=== PATIENT | female | born 1975 | race Caucasian/White ===

== ENCOUNTER → 2018-02-06 01:15 | Outpatient (CLI) | payer OTHER, SELFPAY ==
--- NOTE | 2018-02-06 11:52 | DI.REPORT_ITS ---
SYMPTOM/DIAGNOSIS: SCREENING, Z12.31 MAMMOGRAM: Mammograms were interpreted according to the usual protocol including computer analysis with CAD system, tomosynthesis and C view imaging. The breast tissue is heterogeneously radiodense which lowers the sensitivity of the study. Breast density category C. There is an apparent rounded subareolar density which likely represents a cyst, however, a small mass could not be excluded. There are no suspicious calcifications. SUMMARY: Question small left breast cyst or mass. Further assessment with left breast ultrasound is recommended. Category 0 - C. MQSA ASSESSMENT OF FINDINGS: Incomplete: Needs additional imaging evaluation. Category 0. Patient will receive a letter notifying them of these results. Bi-RADS category C. The breasts are heterogeneously dense, which may obscure small masses. The patient returned on 02/12/18 for a left breast ultrasound. Final Category 1 , breast density D. FINAL MQSA ASSESSMENT OF FINDINGS: Negative. Category 1. Patient will receive a letter notifying them of these results. BI-RADS category D. The breasts are extremely dense, which lowers the sensitivity of mammography.
== END ==
PROVIDERS: PCP Family Medicine; Visit Provider Nurse Practitioner Family
DX: Z12.31 Encounter for screening mammogram for malignant neoplasm of breast (principal); R92.8 Other abnormal and inconclusive findings on diagnostic imaging of breast
CPT/HCPCS: 77063; 77067

== ENCOUNTER → 2018-02-12 01:12 | Outpatient (CLI) | payer OTHER, SELFPAY ==
--- NOTE | 2018-02-12 13:55 | DI.REPORT_ITS ---
SYMPTOMS/DIAGNOSIS: F/U MAMMO, ? SMALL LT BREAST CYST OR MASS LEFT BREAST ULTRASOUND: The entire left breast was scanned. The mammogram questioned a subareolar nodule. No cyst or mass is identified. There is dense breast tissue. IMPRESSION: Category I D, negative mammogram and left breast ultrasound. Yearly screening mammography is recommended.
[2018-02-12 15:22] LABS: TSH (W/Ref FT4) 0.99 uIU/mL (0.358-3.74)
== END ==
PROVIDERS: PCP Family Medicine; Visit Provider Nurse Practitioner Family
DX: N92.6 Irregular menstruation, unspecified (principal); Z12.31 Encounter for screening mammogram for malignant neoplasm of breast; R92.8 Other abnormal and inconclusive findings on diagnostic imaging of breast
CPT/HCPCS: 36415; 76642; 84443

== ENCOUNTER → 2018-02-19 01:00 | Outpatient (CLI) | payer OTHER, SELFPAY ==
--- NOTE | 2018-02-19 07:48 | DI.REPORT_ITS ---
SYMPTOM/DIAGNOSIS: WORSENING DYSMENORRHEA AND MID CYCLE PAIN R10.2 PELVIC ULTRASOUND: Transabdominal and transvaginal exams were performed. The uterus measures 7.3 x 3.7 5 cm. There is a 1.5 cm posterior fibroid. The endometrial stripe measures 4 mm in thickness. There is a trace amount of fluid in the cul de sac. The ovaries are normal in size and appearance. A corpus luteum cyst is noted on the right ovary. The kidneys are unremarkable. IMPRESSION: Small posterior fibroid.
== END ==
PROVIDERS: PCP Family Medicine; Visit Provider Nurse Practitioner Family
DX: R10.2 Pelvic and perineal pain (principal); N94.6 Dysmenorrhea, unspecified; D25.9 Leiomyoma of uterus, unspecified
CPT/HCPCS: 76830; 76856

== ENCOUNTER 2018-10-01 09:52 | Outpatient (CLI) | payer OTHER, SELFPAY ==
--- NOTE | 2018-10-01 11:28 | DI.US_ITS ---
SYMPTOMS/DIAGNOSIS: FAMILY H/O THYROID DISEASE, Z83.49 THYROID ULTRASOUND: The right thyroid lobe measures 6.3 x 1.6 x 1.9 cm. The isthmus measures 3.7 mm. The left thyroid lobe measures 4.9 x 1.6 x 1.6 cm. The gland is acoustically homogeneous. No cyst or mass is apparent. SUMMARY: The right thyroid lobe is somewhat larger than the left with a maximal diameter of 6.3 cm, left lobe 4.9 cm. There are no cysts or masses seen and the study is otherwise unremarkable.
== END 2018-10-01 10:12 ==
PROVIDERS: PCP Family Medicine; Visit Provider Otolaryngology Otolaryngology/Facial Plastic Surgery
DX: E07.89 Other specified disorders of thyroid (principal); Z83.49 Family history of other endocrine, nutritional and metabolic diseases
CPT/HCPCS: 76536

== ENCOUNTER 2019-04-18 01:44 | Outpatient (CLI) | payer OTHER, SELFPAY ==
--- NOTE | 2019-04-18 09:33 | DI.RAD_ITS ---
EXAM: XR HIP RT COMPLETE AP PELVIS INDICATION: TROCHANTERIC BURSITIS RT M70.61. COMPARISON: No exams were available for comparison TECHNIQUE: 2D digital imaging was performed. FINDINGS: Hip joint spaces are well maintained. Time there is minimal acetabular spurring. No joint space or soft tissue calcifications are seen. The SI joints are unremarkable. IMPRESSION: Minimal degenerative changes.
== END 2019-04-18 02:04 ==
PROVIDERS: PCP Family Medicine; Visit Provider Family Medicine
DX: M25.551 Pain in right hip (principal); M70.61 Trochanteric bursitis, right hip; M16.11 Unilateral primary osteoarthritis, right hip
CPT/HCPCS: 73502

== ENCOUNTER 2019-09-04 01:46 | Outpatient (CLI) | payer OTHER, SELFPAY ==
--- NOTE | 2019-09-04 11:40 | DI.MRI_ITS ---
EXAM: MR LOWER JOINT RT WO CLINICAL HISTORY: Right hip abductor tendon tear, trochanteric bursitis M76.891 ENTHESOPATHIES OF RT LOWER LIMB, M70.61 TECHNIQUE: Multiplanar multisequence MRI was performed. COMPARISON: No exams were available for comparison FINDINGS: There is hyperintense signal adjacent to the greater trochanter of the right femur. There also appea rs to be hyperintense signal surrounding the gluteus medius tendon and within the adjacent muscle. T he findings are suspicious for gluteus medius muscle strain/tear. There is normal marrow signal. No evidence of an occult fracture or avascular necrosis. No other abnormal signal is seen in the muscles or tendons. The right hip joint appears well maintained. The articular cartilage and labrum are grossly unremark able on this noncontrast examination. No soft tissue mass or focal fluid collection is appreciated. IMPRESSION: Findings of greater trochanteric bursitis. Findings suggestive of a strain or partial tear of the gl uteus medius tendon. DATA REPOSITORY:
== END 2019-09-04 02:06 ==
PROVIDERS: PCP Family Medicine; Visit Provider Student in an Organized Health Care Education/Training Program
DX: M25.551 Pain in right hip (principal); M70.61 Trochanteric bursitis, right hip; S76.091A Other specified injury of muscle, fascia and tendon of right hip, initial encounter
CPT/HCPCS: 73721

== ENCOUNTER 2019-11-17 09:36 | Outpatient (CLI) | payer OTHER, SELFPAY ==
[2019-11-18 17:37] LABS: COVID-19 RT-PCR Result NEGATIVE (Negative)
== END 2019-11-17 09:56 ==
PROVIDERS: PCP Family Medicine; Visit Provider Student in an Organized Health Care Education/Training Program
DX: Z11.59 Encounter for screening for other viral diseases (principal); Z01.818 Encounter for other preprocedural examination
CPT/HCPCS: U0003

== ENCOUNTER 2019-11-20 08:53 | Day surgery (SDC) | payer OTHER, SELFPAY ==
[2019-11-20] VITALS (9 sets, daily range): BP systolic 82–101; BP diastolic 49–68; PULSE 60–100; RESP 12–18; TEMP 36.5–37; O2SAT 96–100
[2019-11-20] MEDS: Lactated Ringers 1,000 ML 100 ML IV ×2 (09:32→13:33)
[2019-11-20] MEDS: ceFAZolin 2 GM/50 ML BAG IVPB (11:45)
[2019-11-20] MEDS: Bupivacaine 0.25% Pres-Free 30 ML VIAL (12:34)
--- NOTE | 2019-11-20 14:57 | W.PM.DSUDISC ---
Discharge Plan Disposition Patient Disposition: HOME Condition: Stable Discharge Details Reason For Visit: TROCH BURSITIS,ITB SYNDROME Attending Provider: Rene Keita Primary Care Provider: Dia Hagen Home Meds and New Rx's Prescriptions: New naproxen 250 mg tablet 250 - 500 mg PO BID PRN (Reason: Moderate pain or swelling) Qty: 60 RF: 0 tramadol 50 mg Tablet 50 mg PO Q8H PRN PRN (Reason: severe pain) Qty: 12 RF: 0 aspirin 325 mg tablet,delayed release (DR/EC) 325 mg PO DAILY 30 Days Qty: 30 RF: 0 ondansetron 4 mg tablet,disintegrating 4 mg PO Q6H PRN (Reason: nausea or vomiting) Qty: 5 RF: 0 Continued norethindrone (contraceptive) 0.35 mg tablet 0.35 mg PO DAILY Qty: 84 RF: 5 loratadine [Claritin] 10 mg tablet 10 mg PO DAILY RF: 0 citalopram 10 MG tablet 20 mg PO DAILY RF: 0 clonazepam 0.25 MG tablet,disintegrating 0.25 mg PO PRN RF: 0 omeprazole 20 mg capsule,delayed release(DR/EC) 40 mg PO PRN RF: 0 Discharge Instructions Additional Instructions: Surgery: Right hip excision trochanteric bursa and iliotibial band lengthening Activity: Protected weightbearing with walker for 6 weeks. No active hip abduction or passive abduction for 6 weeks. Gradually increase range of motion and work to normalize gait over this time period. A physical therapy prescription will be provided separately in the office at follow-up if needed. Prescriptions: Aspirin 325 mg take 1 daily to prevent a blood clot for 30 days Naproxen 250 mg take 1-2 every 12 hours with a meal as needed for moderate pain Tramadol 50 mg take 1 every 8 hours as needed for severe pain Ondansetron (Zofran) 4 mg orally dissolving tablet as needed for nausea or vomiting You may use onbo-bra-joskjrp Tylenol (acetaminophen) as needed for mild pain. These pain medications may be taken all at once or in different combinations as needed. Also, recommend Colace (docusate) as a stool softener as surgery and pain medicine cause constipation. Dressings: Leave dressing in place until follow-up. Keep clean and dry at all times. Follow-up: 10-[address] Keita Please call the office during business hours with any questions or concerns. Let us know right away if you develop any redness, drainage, fevers, chest pain, or trouble breathing. Do not drink alcohol or drive for at least 24 hours after anesthesia. Stand Alone Forms: [facility] Post op Instructions, Hermes [facility] ([facility]) Referrals: Rene Keita MD [ [facility] STAFF PHYSICIAN] - Discharge Orders Discharge Orders: Discharge Order (Routine); Ordered 11/20/19 Ordered By: Rene Keita DS: Diagnosis Discharge Diagnosis (1) Trochanteric bursitis, right hip: Status: Chronic (2) Tendinitis involving right hip abductors: Status: Acute (3) Iliotibial band syndrome of right side: Status: Acute
[2019-11-20] MEDS: HYDROcodone 5/Acetaminophen 325 TAB PO (15:14)
--- NOTE | 2019-11-20 15:17 | ROE_ITS ---
Date of service: 11/20/19 Time of Service: 14:57 Operative Note Operative Note DATE OF PROCEDURE: 11/20/19 PRE-OP DIAGNOSIS: Right: 1. Hip trochanteric bursitis 2. Iliotibial band syndrome 3. Hip abductor tendinitis POST-OP DIAGNOSIS: same PROCEDURE: Right: 1. Excision trochanteric bursa, CPT #53671 2. Iliotibial band tenotomy with z-lengthening, CPT #47935 SURGEON: Rene Keita DECKH[employer] CLAM DREDGE: Zohra Narayanan ANESTHESIA: GETA and local ESTIMATED BLOOD LOSS: 15 COMPLICATIONS: None Patient was transported to: PACU Patient's condition: stable Implants: None Indications: Please see complete medical record for details. Findings: Significantly tight and thickened IT band over the greater trochanter. Chronic trochanteric bursitis. Intact hip abductor tendons. Procedure Description: The patient was taken to the operating room and transferred to the operating room table. General anesthesia was induced. The patient was positioned laterally. All bony prominences were well-padded. Preoperative antibiotics were administered. The right hip was prepped and draped in the usual sterile fashion. The correct patient, procedure, and side of the procedure were all verified prior to incision. Superficial and deep tissue about the surgical site was infiltrated prior to incision with 40 cc of 0.25% bupivacaine and Exparel mixture. A longitudinal incision was made centered over the greater trochanter. Sharp dissection was carried through subcutaneous tissue and adipose down to the IT band. There were significant and extensive adhesions of subcutaneous tissue over the IT band, which were released through a combination of blunt digital dissection and with a Ramon. Hemostasis was achieved with bipolar cautery. The margins of the IT band about the greater trochanter were exposed. A marking pen was used to plan the incision for exposure of the trochanteric bursa as well as for the Z lengthening with acute angles at the proximal anterior and posterior distal aspects. A deep knife was used to longitudinally incise the IT band, which was extremely taut and immediately retracted both anteriorly and posteriorly away from the greater trochanter exposing the underlying bursa. The underlying bursa was chronically inflamed and scarred with adhesions creating an irregular surface over the greater trochanter bone. The sciatic nerve was palpated far deep and posteriorly in the wound and avoided. The bursa was completely removed using careful exposure and rongeur. Rongeur was also used to smooth prominences over the greater trochanter. Once this was complete, exposure allowed us to inspect the abductor tendons insertion onto the greater trochanter which was digitally palpated and felt to be strong and intact. Normal saline was used to irrigate the wound. The corners of the planned IT band tenotomy were tagged using tied 0 Vicryl. The deep knife was used with careful exposure most most proximally and distally to create the anterior and posterior leaflets. The IT band tension mostly released itself and then was completed bluntly and digitally. The tag stitches were used to repair the correct margins of the IT band in a lengthened fashion. #1 Vicryl was used in a cecogg-vn-mylqx interrupted fashion to repair the IT band taking care to ensure there was no undue tension over the greater trochanter after repair. Wound was copiously irrigated normal saline. Appropriate hemostasis had been achieved. 0 Vicryl in a buried interrupted fashion was used to approximate the space. 2-0 Monocryl was used in a buried interrupted fashion to close subcutaneous layer. The skin was closed using 3-0 Monocryl in a running subcuticular fashion. Skin glue was applied over the incision and allowed to completely dry. The incision was covered with a silver impregnated bandage. The patient awoke from anesthesia without complication was transferred to cover him in stable condition.
== END 2019-11-20 15:52 | disposition home or self-care (01) ==
PROVIDERS: PCP Family Medicine; Visit Provider Student in an Organized Health Care Education/Training Program
PROC: (CPT 27062; principal; 2019-11-20 10:45)
DX: M70.61 Trochanteric bursitis, right hip (principal); M76.31 Iliotibial band syndrome, right leg; M76.891 Other specified enthesopathies of right lower limb, excluding foot; F17.210 Nicotine dependence, cigarettes, uncomplicated; Z79.3 Long term (current) use of hormonal contraceptives
CPT/HCPCS: 27062; 27305; J0690; J1100; J1885; J2001; J2405

== ENCOUNTER 2020-05-12 10:05 | Outpatient (CLI) | payer OTHER, SELFPAY ==
--- NOTE | 2020-05-12 08:15 | DI.RAD_ITS ---
EXAM: XR HIP RT COMPLETE AP PELVIS CLINICAL HISTORY: Hip pain. TECHNIQUE: 2D digital imaging was performed. COMPARISON: CR XR HIP RT COMPLETE AP PELVIS from 04/18/2019 FINDINGS: BONES: No acute fracture is present. No bony destructive lesion is seen. JOINTS: No dislocation present. Stable minimal degenerative changes are seen in the hips. Sacroiliac joints and symphysis pubis are unremarkable. SOFT TISSUE: Normal. IMPRESSION: Stable mild degenerative changes of the hips. Unremarkable radiographs of the pelvis. DATA REPOSITORY: RADIATION DOSE DELIVERED:
== END 2020-05-12 10:25 ==
PROVIDERS: PCP Family Medicine; Referring Provider Family Medicine; Visit Provider Student in an Organized Health Care Education/Training Program
DX: M16.0 Bilateral primary osteoarthritis of hip (principal)
CPT/HCPCS: 73502

== ENCOUNTER 2020-06-17 00:29 | Outpatient (CLI) | payer OTHER, SELFPAY ==
--- NOTE | 2020-06-17 07:30 | DI.RAD_ITS ---
EXAM: RF JOINT INJECTION FLUORO GUID CLINICAL HISTORY: R HIP INJ UNDER FLUORO,LABRAL TEAR RT HIP JOINT,IMPINGEMENT,S73.191A,M25.85 TECHNIQUE: COMPARISON: No exams were available for comparison FINDINGS: C-arm fluoroscopy was utilized by Dr. Guerrier during reported right hip injection. Hard copy shows intra-articular injection of the right hip. Fluoro time not indicated. IMPRESSION: RADIATION DOSE DELIVERED: Total DLP
[2020-06-17] MEDS: Bupivacaine 0.5% Pres-Free 10 ML VIAL IJ (14:30)
[2020-06-17] MEDS: Omnipaque 300 MG/ML 10 ML BTL IJ (14:32)
[2020-06-17] MEDS: methylPREDNISolone ACETATE 80 MG/ML VIAL IM (14:33)
--- NOTE | 2020-06-17 14:38 | W.PROCNOTE ---
Date of service: 06/17/20 Time of Service: 14:40 Procedure Note Date of procedure: 06/17/20 Procedure: Right Hip Injection with Fluoroscopic Guidance Surgeon/Proceduralist/Physician: Billy Guerrier Procedure Diagnosis: Right Hip Impingement Procedure Indications: Jeannine has had persistent pain of the RIGHT hip. Noninvasive measures have been tried. To serve as both diagnostic and therapeutic, an injection under fluoroscopy was recommended. I had discussed the risks of the procedure and the patient elected to proceed. Procedure Description: Jeannine was greeted in the flouroscopy room. The correct side was identified and the consent was reviewed with the patient and signed. The patient was then placed in the supine position on the fluoroscopy table. The RIGHT hip was then prepped with Chloraprep. The anterolateral injection starting point was identiifed by bony landmarks and fluoroscopy. The skin and soft tissue in the tract of the injection was anesthetized with 1% Lidocaine. A spinal needle was then inserted deep into the hip joint at the level of the lateral femoral neck under fluoroscopic guidance. A small amount of Omnipaque solution was injected to confirm intraarticular placement. Once confirmed, the hip was injected with 6cc of 0.5% Bupivicaine and 80mg of Depo-Medrol. A bandaid was placed on the injection site. The patient tolerated the procedure well and noted improvement in pre-injection pain.
== END 2020-06-17 00:49 ==
PROVIDERS: PCP Family Medicine; Visit Provider Student in an Organized Health Care Education/Training Program
DX: M25.851 Other specified joint disorders, right hip (principal); M25.551 Pain in right hip
CPT/HCPCS: 20610; 77002; J1040

== ENCOUNTER 2020-07-27 03:08 | Outpatient (CLI) | payer OTHER, SELFPAY ==
[2020-07-28 12:31] LABS: COVID-19 RT-PCR UVMMC Result Negative (Negative)
== END 2020-07-27 03:28 ==
PROVIDERS: PCP Family Medicine; Visit Provider Student in an Organized Health Care Education/Training Program
DX: Z11.52 Encounter for screening for COVID-19 (principal); Z01.818 Encounter for other preprocedural examination
CPT/HCPCS: U0003

== ENCOUNTER 2020-07-30 07:30 | Day surgery (SDC) | payer OTHER, SELFPAY ==
[2020-07-30] MEDS: ceFAZolin 2 GM/50 ML BAG IVPB (08:04)
[2020-07-30] MEDS: Lactated Ringers 1,000 ML 100 ML IV (10:17)
--- NOTE | 2020-07-30 12:32 | DI.RAD_ITS ---
EXAM: XR HIP RT IN OR CLINICAL HISTORY: right hip pain. TECHNIQUE: 2D digital imaging was performed. COMPARISON: No exams were available for comparison FINDINGS: Fluoroscopy provided during orthopedic procedure on the right hip. Total fluoroscopy time 79 seconds; cumulative dose 8.10mGy IMPRESSION: DATA REPOSITORY: RADIATION DOSE DELIVERED:
[2020-07-30 12:47] VITALS: BP 102/68; PULSE 82; RESP 18; TEMP 36.3; O2SAT 100
[2020-07-30 12:52] VITALS: BP 109/75; PULSE 61; RESP 18; TEMP 36.3; O2SAT 100
[2020-07-30 12:57] VITALS: BP 109/63; PULSE 76; RESP 18; TEMP 36.3; O2SAT 100
[2020-07-30] MEDS: EPINEPHrine 30 MG/30 ML VIAL (13:06)
[2020-07-30] MEDS: Bupivacaine 0.25% Pres-Free 30 ML VIAL (13:07)
[2020-07-30] MEDS: EPINEPHrine 1 MG/ML AMP pres-free (13:08)
[2020-07-30 13:12] VITALS: BP 114/54; PULSE 79; RESP 23; TEMP 36.7; O2SAT 98
--- NOTE | 2020-07-30 13:33 | W.PM.DSUDISC ---
Discharge Plan Disposition Patient Disposition: HOME Condition: Stable Discharge Details Reason For Visit: Right hip arthroscopy Attending Provider: Rene Keita Primary Care Provider: Dia Hagen Home Meds and New Rx's Prescriptions: New aspirin 81 mg tablet,delayed release (DR/EC) 81 mg PO DAILY 30 Days Qty: 30 RF: 0 naproxen 250 mg tablet 250 - 500 mg PO BID PRN (Reason: Moderate pain or swelling) Qty: 60 RF: 0 tramadol 50 mg Tablet 50 mg PO Q8H PRN PRN (Reason: severe pain) Qty: 12 RF: 0 Continued citalopram 10 MG tablet 20 mg PO DAILY RF: 0 clonazepam 0.25 MG tablet,disintegrating 0.25 mg PO PRN RF: 0 omeprazole 20 mg capsule,delayed release(DR/EC) 40 mg PO PRN RF: 0 norethindrone (contraceptive) 0.35 mg tablet 0.35 mg PO DAILY Qty: 84 RF: 5 Discontinued ibuprofen [Advil] 200 mg tablet 200 mg PO Q6H PRNRF: 0 celecoxib 200 mg capsule 200 mg PO DAILY PRN (Reason: hip pain) Qty: 90 RF: 2 Discharge Instructions Additional Instructions: Surgery: Right hip arthroscopy with labral debridement Activity: Weightbearing as tolerated. Recommend use of crutches or walker for at least 2 to 3 weeks. Light activities only (e.g., walking) for 6 to 8 weeks. Gentle range of motion about the hip is ok. A physical therapy prescription will be provided separately in the office at follow-up as needed. Prescriptions: Aspirin 81 mg take 1 daily to prevent a blood clot for 30 days Naproxen 250 mg take 1-2 every 12 hours with a meal as needed for moderate pain Tramadol 50 mg take 1 every 8 hours as needed for severe pain You may use qxhw-twh-dkoecpz Tylenol (acetaminophen) as needed for mild pain. These pain medications may be taken all at once or in different combinations as needed. Also, recommend Colace (docusate) as a stool softener as surgery and pain medicine cause constipation. Dressings: Leave dressing in place for 3 days. May then remove and leave open to air or cover incisions with Band-Aids. May shower after 5 days. Follow-up: 10-[address] Keita Let us know right away if you develop any redness, drainage, fevers, chest pain, or trouble breathing. Do not drink alcohol or drive for at least 24 hours after anesthesia. Please call the office during business hours with any questions or concerns. Referrals: Rene Keita MD [ [facility] STAFF PHYSICIAN] - Discharge Orders Discharge Orders: Discharge Order (Routine); Ordered 07/30/20 Ordered By: Rene Keita DS: Diagnosis Discharge Diagnosis (1) Labral tear of right hip joint: Status: Acute (2) Femoroacetabular impingement of right hip: Status: Acute
--- NOTE | 2020-07-30 13:58 | W.PM.OP ---
Date of service: 07/30/20 Time of Service: 13:33 Operative Note Operative Note DATE OF PROCEDURE: 07/30/20 PRE-OP DIAGNOSIS: 1. Right hip labral tear 2. Right hip impingement POST-OP DIAGNOSIS: other 1. Right hip labral tear PROCEDURE: 1. Right hip arthroscopy with labral debridement, CPT # 69747 SURGEON: Rene Keita [employer] SUPERVISOR: Lucian Herr ANESTHESIA: GETA, regional and local COMPLICATIONS: None Patient was transported to: PACU Patient's condition: stable Implants: None Indications: Please see complete medical record for details. Findings: Moderate anterior superior labral tear fraying without miguel detachment from acetabular rim. Moderate localized adjacent cartilage thinning and synovitis. Well-preserved articular cartilage remainder of acetabulum and entirety of humeral head. No engaging CAM or pincer lesions. Excellent hip range of motion without any femoral acetabular impingement or block to motion. Procedure Description: In the operating room, general and regional anesthesia were induced. The patient was positioned supine on the operating room table. All bony prominences were well-padded. Preoperative antibiotics were administered. The correct patient, procedure, and side of the procedure were all verified prior to incision. Initially, appropriate hip joint distraction was confirmed under sterile technique releasing suction seal with the hip in slight abduction carefully placing an 18-gauge spinal needle into the hip joint and perform an air arthrogram. The needle was removed, provisional traction released, and the hip prepped and draped in the usual sterile fashion. Fluoroscopically, an anterolateral portal was established with hip under about 1 cm distraction. Traction start time as noted. Through the spinal needle, a nitinol wire was inserted and the needle removed. An 11 blade was used to create a portal sized incision about the Nitinol wire. A small 4 mm dilator was passed atraumatically over the Nitinol wire through the capsule into the hip joint. The Nitinol wire was retracted. A 6 mm dilator was then passed through the capsule just into the hip joint and the initial dilator removed. The blunt end of a switching stick was passed into the hip joint and the last dilator removed. The camera sleeve was then inserted over the switching stick, the switch to removed, and the arthroscope attached to the camera sleeve. And dry, and initial diagnostic arthroscopy of the hip confirmed appropriate viewing portal location about the equator laterally. Using a combination of fluoroscopy and arthroscopic triangulation a modified mid anterior portal was established in a similar fashion to the anterior lateral viewing portal first with a spinal needle and then dilating up to 6 mm. There was taken to ensure that the spinal needle was in the appropriate anterior location and adjacent to the labrum prior to dilating the portal for access. A half pipe was used to carefully bring the banana blade into the hip joint and release the capsule working portal to the viewing portal. The capsular release was completed working anterolaterally and viewing from anteriorly. A probe was brought into the hip joint and a diagnostic arthroscopy started viewing anteriorly and completed after switching viewing back anterior laterally. Event findings documented above. Attention was then turned to the anterior superior labral tear. Probe confirmed no detachment from the acetabulum so decision was made to proceed with labral debridement. Mechanical shaver was used to remove labral fraying, irregularity, and contour the labral zone of injury to stable margin while removing adjacent synovitis. Appropriate labral debridement was completed and confirmed after switching viewing and working portals. The blunt end of a switching stick was left in the anterior lateral portal drawn from the joint. Similarly while viewing from anteriorly the arthroscope was withdrawn from the joint. Under direct visualization traction was gradually released at 57 minutes. The femoral head was carefully inspected throughout range of motion near the zone of labral injury for any articular cartilage irregularity. The hip was brought into almost 90 degrees flexion, deep flexion external rotation, and full internal and external rotation and extension. No appreciable femoral head chondromalacia, irregularity, or cam lesion. There is no femoral acetabular impingement or block to motion, especially in full abduction and external rotation. Multiple fluoroscopic views were saved on the C arm cementing the femoral head neck morphology. Patient was made to omit any femoroplasty. The hip was drained of arthroscopic fluid. 20 cc of 0.25% bupivacaine containing epinephrine was infiltrated about both portal sites. The patient awoke from anesthesia without complication and was transferred to the recovery room in a stable condition.
== END 2020-07-30 15:00 | disposition home or self-care (01) ==
LOC: SUR 16:03
PROVIDERS: PCP Family Medicine; Visit Provider Student in an Organized Health Care Education/Training Program
PROC: (CPT 29860; principal; 2020-07-30 09:00)
DX: S73.191A Other sprain of right hip, initial encounter (principal); M25.851 Other specified joint disorders, right hip; G89.18 Other acute postprocedural pain; X58.XXXA Exposure to other specified factors, initial encounter; K21.9 Gastro-esophageal reflux disease without esophagitis
CPT/HCPCS: 29862; 76942; 73501; J0131; J0171; J0690; J1100; J1885; J2001; J2250; J2405

== ENCOUNTER 2020-11-30 02:38 | Outpatient (CLI) | payer OTHER, SELFPAY ==
[2020-11-30 11:40] LABS: Source Nasal/Nares
[2020-11-30 22:12] LABS: COVID-19 PCR Negative (Negative)
== END 2020-11-30 02:39 | disposition home or self-care (01) ==
LOC: LBO 02:38
PROVIDERS: PCP Family Medicine; Visit Provider Student in an Organized Health Care Education/Training Program
DX: Z20.822 Contact with and (suspected) exposure to COVID-19 (principal); Z01.818 Encounter for other preprocedural examination
CPT/HCPCS: 87635

== ENCOUNTER 2020-12-02 07:56 | Day surgery (SDC) | payer OTHER, SELFPAY ==
[2020-12-02] VITALS (9 sets, daily range): BP systolic 87–108; BP diastolic 50–65; PULSE 76–98; RESP 16–22; TEMP 36.6–37; O2SAT 97–100; BMI 22.4
--- NOTE | 2020-12-02 06:50 | ANES.PREOP_ITS ---
General Info Date of Service Date Performed: 12/02/20 Height: 5 ft Weight: 52.163 kg Body Mass Index (BMI): 22.4 Surgical Procedure: Operation Date: 12/02/20 10:20 Proposed Procedures Side Surgeon p endoscopic iliotibial band release with revision trochanteric butsectomy Right Rene Keita MD Meds Allergies and Home Medications Allergies Allergy/AdvReac Type Severity Reaction Status Date / Time oxycodone [Oxycodone] AdvReac Mild n/v Verified 11/30/20 14:49 Home Medication Medication Instructions Recorded citalopram 20 mg PO DAILY tab-cap 03/17/14 clonazepam 0.125 mg PO PRN 03/17/14 omeprazole 20 mg capsule,delayed 40 mg PO PRN tab-cap 04/15/19 release norethindrone (contraceptive) 0.35 0.35 mg PO DAILY #84 tab 05/19/20 mg tablet celecoxib 200 mg capsule 200 mg PO DAILY PRN 11/16/20 Current Visit Medications: Current Medications Generic Name Dose Route Start Last Admin Trade Name Freq PRN Reason Stop Dose Admin Ringer's Solution 1,000 mls @ 100 mls/hr 12/02/20 06:00 IV 12/31/20 23:59 INFUSION GEOVANNA Cefazolin Sodium/Dextrose 2 gm in 50 mls @ 100 mls/hr 12/02/20 06:00 Ancef Duplex IVPB 12/02/20 16:00 PREOP GEOVANNA IV Miscellaneous Supplies 1 each 12/02/20 06:00 Iv Access IV 12/31/20 23:59 DIRECTED GEOVANNA Sodium Chloride 0 ml 12/02/20 06:00 Normal Saline Flush 10 Ml Syr IV 12/31/20 23:59 PRN PRN Sodium Chloride 0 ml 12/02/20 06:00 Normal Saline 10 Ml Vial IJ 12/31/20 23:59 DIRECTED PRN Sterile Water 0 ml 12/02/20 06:00 Water,Injection,Sterile 10 Ml Vial IJ 12/31/20 23:59 DIRECTED PRN PFSH Active Problems Active Problems: Problem Status Onset Code Labral tear of right hip joint S73.191A 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 06/18/2019 improved with amenorrhea resulting from progesterone only pills Primary dysmenorrhea improved after endometrial ablation. pain present with any uterine bleeding. Tobacco use Pre-contemplative stage of quitting. Uses oral contraceptives progestin OCP Rx for non-contraceptive benefits. Surgical History Surgical History Diagnostic Laproscopy For Endometriosis in 2010 [place]blation 2010 [place] Tobacco Smoking/Tobacco Use Status: Current every day Tobacco Type: cigarettes Years smoked: 25 Quit Status: not considering quitting Counseling given: provider counseling Alcohol Alcohol Intake: current Alcohol intake frequency: holidays/special occasions only Alcohol type: wine Substance Use Substance use: Never Substance use type: does not use Vital Signs and Lab Results Lab Results Blood Type / Crossmatch: No Data to Display Complete Blood Count: No Data to Display Complete Metabolic Panel: No Data to Display Liver Function Panel: No Data to Display Coagulation Panel: No Data to Display Cardiac Panel: No Data to Display Arterial Blood Gas: No Data to Display Venous Blood Gas: No Data to Display Pancreas Panel: No Data to Display Thyroid Panel: No Data to Display Infectious Disease: Coronavirus (COVID-19)(PCR) Negative (Negative) 11/30/20 11:16 11/30/20 Coronavirus 2019 Source Nasal/nares 11/30/20 11:16 11/30/20 Blood Cultures: No Data to Display Toxicology Panel: No Data to Display Panel: No Data to Display Anesthesia Assessment and Plan Anesthesia History Personal History: No History of Anesthesia Complications Family History: No Family History of Anesthesia Complications Exercise Tolerance Exercise Tolerance: Metabolic Equivalents>4 Pertinent Negatives Pertinent Negatives: No Symptoms of GERD, No Major Cardiovascular Symptoms or Complaints, No Major Pulmonary Symptoms or Complaints and No History of CVA/TIA Cardiac & Pulmonary Exam Cardiac Exam: Normal S1/S2 Heart Sounds Pulmonary Exam: Clear Bilateral Breath Sounds Airway Exam Known Difficult Airway: No Mallampati Class: 2 Mouth Opening: Normal (> 3cm) Thyromental Distance: Greater than 3 cm Neck Range of Motion: Full ROM Neck Circumference: Normal Teeth Condition: Normal Dentition ASA Classification ASA Score: ASA 2 Emergency Case?: No NPO Status NPO Status: NPO Clears >2 hours, Solids >8 hours Status Status: Negative HCG Anesthesia Plan Resuscitation Status: Full Code Anesthesia Technique: General Anesthesia Airway Planned: LMA Monitors Used: Standard Monitors
[2020-12-02] MEDS: Lactated Ringers 1,000 ML 100 ML IV (08:27)
[2020-12-02] MEDS: ceFAZolin 2 GM/50 ML BAG IVPB (11:07)
--- NOTE | 2020-12-02 12:10 | DI.RAD_ITS ---
Exam(s) XR HIP RT 1V EXAM: XR HIP RT 1V CLINICAL HISTORY: LABRAL TEAR, IMPINGEMENT, IT BAND, TROCH BURSITIS TECHNIQUE: 2D and realtime digital imaging was performed. CONTRAST MATERIAL: Refer to procedure report. FINDINGS: Fluoroscopy was provided for Dr. Keita during the performance of a right hip arthroscopy with labral tear repair.. Please refer to the procedure report for complete details. Ka,r=1.59 mGy IMPRESSION: RADIATION DOSE DELIVERED:
--- NOTE | 2020-12-02 12:41 | PDOC.DSDIS_ITS ---
Discharge Plan Disposition Patient Disposition: HOME Condition: Stable Discharge Details Reason For Visit: Right hip surgery Attending Provider: Rene Keita Primary Care Provider: Dia Hagen Home Meds and New Rx's Prescriptions: New aspirin 81 mg tablet,delayed release (DR/EC) 81 mg PO DAILY 14 Days Qty: 14 RF: 0 celecoxib 200 mg capsule 200 mg PO DAILY PRN (Reason: pain) Qty: 30 RF: 0 tramadol 50 mg Tablet 50 mg PO Q8H PRN PRN (Reason: severe pain) Qty: 7 RF: 0 Continued celecoxib 200 mg capsule 200 mg PO DAILY PRNRF: 0 citalopram 10 MG tablet 20 mg PO DAILY RF: 0 clonazepam 0.25 MG tablet,disintegrating 0.125 mg PO PRN RF: 0 omeprazole 20 mg capsule,delayed release(DR/EC) 40 mg PO PRN RF: 0 norethindrone (contraceptive) 0.35 mg tablet 0.35 mg PO DAILY Qty: 84 RF: 5 Discontinued naproxen 250 mg tablet 250 - 500 mg PO BID PRN (Reason: Moderate pain or swelling) Qty: 60 RF: 0 Discharge Instructions Additional Instructions: Surgery: Right hip endoscopic iliotibial band release with revision trochanteric bursectomy Activity: Weightbearing as tolerated. May use crutches or walker if necessary for a few days. Gradually advance to full motion and activity over the next few weeks. Prescriptions: Aspirin 81 mg take 1 daily to prevent a blood clot for 2 weeks Celecoxib 200 mg take 1 every 24 hours with a meal as needed for moderate pain Tramadol 50 mg take 1 every 8 hours as needed for severe pain You may use [id number] Tylenol (acetaminophen) as needed for mild pain. These pain medications may be taken all at once or in different combinations as needed. Also, recommend Colace (docusate) as a stool softener as surgery and pain medicine cause constipation. Dressings: Remove bandage after 3 days. Leave the sticky Steri-Strips in place until they fall off or remove them after you shower. Cover the incisions with Band-Aids or leave them open to air. May shower after 5 days. Follow-up: 10-[address] Keita Let us know right away if you develop any redness, drainage, fevers, chest pain, or trouble breathing. Do not drink alcohol or drive for at least 24 hours after anesthesia. Please call the office during business hours with any questions or concerns. Referrals: Rene Keita MD [ [facility] STAFF PHYSICIAN] - Discharge Orders Discharge Orders: Discharge Order (Routine); Ordered 12/02/20 Ordered By: Rene Keita DS: Diagnosis Discharge Diagnosis (1) Iliotibial band syndrome of right side: Status: Acute (2) Trochanteric bursitis, right hip: Status: Chronic
--- NOTE | 2020-12-02 12:49 | W.PM.OP ---
Date of service: 12/02/20 Time of Service: 12:42 Operative Note Operative Note DATE OF PROCEDURE: 12/02/20 PRE-OP DIAGNOSIS: Right 1. Iliotibial band syndrome 2. Trochanteric bursitis POST-OP DIAGNOSIS: same PROCEDURE: Right hip endoscopic iliotibial band release (CPT# 17527) and revision trochanteric bursectomy (CPT# 64165) SURGEON: Rene Keita ACETYLENE GAS COMPRESSOR: None None ANESTHESIA TYPE: Local By Surgeon and General LMA/ETT Refer to Anesthesia Record ESTIMATED BLOOD LOSS: 5 PATHOLOGY: none sent TOURNIQUET TIME: 0 COMPLICATIONS: None Patient was transported to: PACU Patient's condition: stable Implants: None Indications: Please see complete medical record for details. Findings: No significant scarring from prior surgeries. Moderately thickened and tight iliotibial band. Mildly inflamed trochanteric bursa. No abductor muscle tear. Procedure Description: In the operating room, general anesthesia was induced. The patient was positioned supine on the [facility] operating room table. All bony prominences were well-padded. Preoperative antibiotics were administered. The hip was prepped and draped in the usual sterile fashion. The correct patient, procedure, and side of the procedure were all verified prior to incision. 30 cc of 0.25% bupivacaine containing epinephrine was infiltrated about the subcutaneous tissues for the planned anterior lateral and distal anterolateral portals as well as deeply over the greater trochanter. A knife was used to incise the skin for the anterior lateral and distal anterolateral portals followed by blunt dissection subcutaneously. Unfortunately, the patient's prior hip arthroscopy AL portal could not be used as it was directly centered over the trochanter without the hip placed under the same amount of traction. Under fluoroscopic guidance, a switching stick and arthroscope were inserted localizing the iliotibial band over the greater trochanter. Blunt dissection and the mechanical shaver were used to resect fat and overlying tissue about the center of the iliotibial band and carefully expose the anterior and posterior margins. Once there was adequate exposure of the IT band, the greater trochanter was again localized under fluoroscopic guidance with a spinal needle inserted through the skin down to bone. This central area was marked using the radiofrequency ablator. A Granite blade was brought in and used to create a 2 cm longitudinal incision in line with the IT band fibers as well as extending it in a cruciate fashion with 2 cm incisions anteriorly and posteriorly. The radiofrequency ablator was used to achieve hemostasis. The mechanical shaver was then used to debride the IT band released edges exposing the trochanteric bursa. The mechanical shaver was then used to excise some overlying remnant iliotibial band tissue and the trochanteric bursa taking care to protect musculature about the margins of the greater trochanter as well as neurovascular structures especially posteriorly. There was excellent visualization of the vastus lateralis as well as gluteus medius confirming appropriate bursa excision. The hip was brought through range of motion including internal and external rotation and there was no impinging iliotibial band tissue or remaining pathologic bursa. The viewing and working portals were switched and appropriate IT band release, trochanteric bursa excision, and hemostasis confirmed. Suction was used to remove fluid from the endoscopic space. The portals were closed using 3-0 Monocryl in a buried fashion. Steri-Strips were applied over the incisions followed by Xeroform, dry 4 x 4 gauze, and secured with tape. The patient awoke from anesthesia without complication and was transferred to the recovery room in a stable condition.
--- NOTE | 2020-12-02 13:55 | W.ANESPOSTOP ---
Postoperative Evaluation Date, Time and Location Date Performed: 12/02/20 Time Performed: 13:55 Patient Location: PACU (Patient seen in PACU, checked with DSU RN and patient still doing well. ) Vital Signs Most Recent Imported Vital Signs: Most Recent Vital Signs Temp Pulse Resp BP Pulse Ox 36.6 C 84 16 108/65 99 12/02/20 13:38 12/02/20 13:38 12/02/20 13:38 12/02/20 13:38 12/02/20 13:38 Pain Score Most Recent Pain Score: Most Recent Pain Score Pain Level 0 12/02/20 13:38 Assessment Mental Status: Awake (Alert & Oriented to Patient Baseline) Airway and Respiratory Function: Patent airway with normal (patient baseline) respiratory exam Cardiovascular Function: Hemodynamically Stable Hydration Status: Adequately Hydrated Nausea & Vomiting: No Nausea or Vomiting Pain: Pt. Denies Any Pain Peripheral Nerve Block: Patient did not receive a nerve block
== END 2020-12-02 14:40 | disposition home or self-care (01) ==
LOC: SUR 07:56
PROVIDERS: PCP Family Medicine; Visit Provider Student in an Organized Health Care Education/Training Program
PROC: (CPT 29863; principal; 2020-12-02 10:00)
DX: M76.31 Iliotibial band syndrome, right leg (principal); M70.61 Trochanteric bursitis, right hip; M25.851 Other specified joint disorders, right hip
CPT/HCPCS: 27062; 27305; 81025; 73501; J0690; J1100; J1200; J1885; J2001; J2250; J2405

== ENCOUNTER 2021-10-26 02:07 | Outpatient (CLI) | payer OTHER, SELFPAY ==
--- NOTE | 2021-10-26 | DI.US_ITS ---
Exam(s) US PAIN CLINIC NEEDLE GUIDANCE EXAM: US PAIN CLINIC NEEDLE GUIDANCE CLINICAL HISTORY: GLUTEAL TENDINITIS RT BUTTOCK, LABRAL TEAR RT HIP JOINT, M76.01, S73.191A TECHNIQUE: Realtime ultrasound imaging was provided for Dr. Barraza for guidance with performing pain clinic injection.. COMPARISON: No exams were available for comparison FINDINGS: Please see procedure note for details. DATA REPOSITORY:
[2021-10-26 08:47] VITALS: BP 115/74; PULSE 97; RESP 20; TEMP 37.1; O2SAT 98
--- NOTE | 2021-10-26 09:25 | PDOC.PAIN ---
Pain Clinic Procedure Note Procedure Note Procedure Note: ULTRASOUND GUIDED RIGHT GUTEUS MEDIUS TENDON NEEDLING INJECTIONS Pre-Procedural Evaluation: Jeannine Perdomo has been referred to the [facility] for an Ultrasound Guided right gluteus medius tendon needling injections for a chief complaint of right lateral hip pain. DX: Right Gluteus Medius tendinopathy Pre-procedure Pain Score: 6/10 Patient was interviewed and the medical record reviewed. There were no medical, pharmacologic, radiographic, or other structural contraindications to preforming an ultrasound guided injection. Risks and expected side effects as well as potential benefits of the procedure were reviewed. The patient consent form was signed and witnessed. Standard time-out procedure was performed. The use of direct ultrasound visualization of the needle (rather than a non-guided injection) was required to increase patient safety by excluding inadvertent intramuscular, intratendinous, or intraneural needle placement and minimizing bleeding by avoiding osteochondral or vascular injury from the needle. Additionally, the increased accuracy of placement may increase clinical effectiveness and will allow higher diagnostic specificity when evaluating effectiveness of this injection. Procedure Description: The patient was placed in the left lateral recumbant position and automated blood pressure cuff and pulse oximeter applied for monitoring during the procedure and recorded in the medical record. Pre-injection ultrasound scanning of the area of interest was performed using linear transducer, identifying relevant anatomy, landmarks, and neurovascular structures allowing for optimal needle path. The site was then prepared in the usual sterile fashion, using thorough Chlorhexadine preparation of the skin and sterile draping. The same ultrasound transducer was then passed into the sterile field using sterile probe cover and sterile ultrasound gel. The injection target was again visualized. Skin and subcutaneous tissues were anesthetized with 3 mL of 1% Lidocaine. A 21G 3.5 Pajunk Ultrasound needle was placed under live ultrasound guidance, using an in-plane approach, to the target area. After visualization of the needle tip at the target area, a mixture of 5 mL 2% Lidocaine of injectate was delivered after negative aspiration for blood. Ultrasound images were captured and stored for documentation purposes. Post-procedure Pain Score:0/10 Vital signs were stable throughout the procedure and were as recorded in the docflowsheet by the nursing staff. Follow up plans and appointments were discussed with the patient.Post procedure instruction was given as documented in nursing documentation and having met discharge criteria, they were discharged from the [facility]. COMMENTS: She is going to avoid extra weight-bearing activity over the next 7 days. At that point she is going to begin stretching the gluteal muscles and IT band and get back to more weight bearing activities. Once the pain is about resolved, she can proceed with strengthing the gluteal muscles. Abner Barraza DO, MPH [facility]
[2021-10-26 09:32] VITALS: PULSE 68; RESP 16; O2SAT 99
[2021-10-26] MEDS: Lidocaine 2% Pres-Free 5 ML VIAL IJ (09:41)
== END 2021-10-26 02:27 ==
PROVIDERS: PCP Family Medicine; Visit Provider Preventive Medicine Occupational Medicine
DX: M76.01 Gluteal tendinitis, right hip (principal)
CPT/HCPCS: 20611; 76942

== ENCOUNTER 2022-03-02 13:59 | Outpatient (REF) | payer OTHER, SELFPAY ==
--- NOTE | 2022-03-02 12:00 | PAPFT_PTH ---
PATIENT: Jeannine Perdomo LOC: [facility] U#:[id number] AGE/SX: 46/F ROOM: RE03/02/[address]: Brandie Beckham : 1975 BED: DIS: 03/02/2022 SPEC #: [id number] RECD: 03/02/22 17:32 STATUS: BRIELLE RESabas #: [id number] VILMA: 03/02/22 12:[address]: Brandie Beckham DEPT: [facility] Cytology RECD BY: Luh Ambrocio ENTERED: 03/02/22 17:32 SP TYPE: PAPFT OTHR DR: Dia Hagen Tissues: 1 - CX/ENDOCX FOR PAP SMEARS Procedures: PAP THIN PREP/UVM Screening HPV DNA PROBE Comments: [id number]
== END 2022-03-02 14:00 | disposition home or self-care (01) ==
LOC: LBN 13:59
PROVIDERS: PCP Family Medicine; Visit Provider Obstetrics & Gynecology Gynecology
DX: Z12.4 Encounter for screening for malignant neoplasm of cervix (principal); Z11.51 Encounter for screening for human papillomavirus (HPV)
CPT/HCPCS: 88142; 87624

== ENCOUNTER → 2022-03-10 00:21 | Outpatient (CLI) | payer OTHER, SELFPAY ==
--- NOTE | 2022-03-10 07:30 | DI.US_ITS ---
Exam(s) US SOFT TISS ABD WALL/LOW BACK EXAM: US SOFT TISS ABD WALL/LOW BACK CLINICAL HISTORY: 10cm length, 1cm width RLQ vertical band of tissue,tender to touch,r10.31. TECHNIQUE: Ultrasound was performed using standard protocol. COMPARISON: No exams were available for comparison FINDINGS: Sonographic assessment utilizing grayscale and color Doppler imaging was performed and targeted to th e area of clinical concern. The area in the right lower quadrant was evaluated sonographically. The anterior abdominal wall is u nremarkable in this area. No soft tissue cystic or solid masses are seen. IMPRESSION: Unremarkable examination. If there is continued clinical concern, a CT scan may be considered for fu rther evaluation. DATA REPOSITORY:
== END ==
PROVIDERS: PCP Family Medicine; Visit Provider Obstetrics & Gynecology Gynecology
DX: R10.31 Right lower quadrant pain (principal)
CPT/HCPCS: 76705

== ENCOUNTER → 2022-04-11 01:55 | Outpatient (CLI) | payer OTHER, SELFPAY ==
[2022-04-11] MEDS: Barium Sulfate 2% W/V-Berry Smoothie 450 ML BTL PO ×2 (08:44→08:45)
[2022-04-11] MEDS: Omnipaque 350 MG/ML 500 ML BTL-Imaging package IJ (09:19)
--- NOTE | 2022-04-11 09:25 | DI.CT_ITS ---
Exam(s) CT ABDOMEN PELVIS W EXAM: CT ABDOMEN PELVIS W CLINICAL HISTORY: 10cm band of tissue RLQ,Nl soft tissue u/s,soft tissue mass, m79.89 TECHNIQUE: Imaging Protocol: Axial computed tomography images with coronal and sagittal reformatted images were created and reviewed CONTRAST MATERIAL: Intravenous: Omnipaque 350 Contrast volume:100 mL Oral: Yes COMPARISON: CT ABD PELVIS WO CONTRAST from 07/11/2016 MR MR LOWER JOINT RT WO from 09/04/2019 US US SOFT TISS ABD WALL/LOW BACK from 03/10/2022 FINDINGS: ABDOMEN: Lung Bases: Normal where visualized. Liver: Normal density. No measurable mass. Portal, Superior Mesenteric, and Splenic Veins: Unremarkable. Gallbladder and Biliary Tract: No radiodense calculus or dilation. Pancreas: Normal density, no abnormal calcifications or inflammatory process. Spleen: Normal. Adrenals: No masses seen. Kidneys: Normal size, contour and axis. No radiodense stones or obstructive uropathy. Bilateral small simple renal cysts. No follow-up is recommended. Abdominal Aorta: Abdominal portion non-dilated. Bowel: No obstruction or bowel wall thickening. Appendix is unremarkable. Peritoneal Cavity: No ascites, collection or mesenteric inflammatory response. No free air. Lymph Nodes: Within normal limits. Bones: Within normal limits for the patient's age. Soft Tissues: Unremarkable. No evidence of an inguinal hernia or soft tissue mass. PELVIS: Bladder: Symmetric distention, no gross wall thickening. Reproductive Organs: There is a 3 x 2.3 cm mass to the right of the uterus which is isodense dense to the uterus. It appears to be connected to the pelvis and likely reflects a fibroid. A pelvic ultra sound may be obtained for further evaluation. The ovaries are distinct and unremarkable. Lymph Nodes: Within normal limits. Bones: Within normal limits for the patient's age. IMPRESSION: 1. No evidence of a right inguinal hernia or soft tissue mass. 2. No acute abdominal or pelvic process. 3. 3 x 2.3 cm mass to the right of the uterus which is isoechoic dense to the uterus. It is connecte d to the uterus and likely reflects a fibroid. A pelvic ultrasound may be obtained for further evalu ation. Other pelvic masses cannot be entirely excluded. This is an unexpected finding. Unexpected findings RADIATION DOSE DELIVERED: 701.69mGy.cm Total DLP DATA REPOSITORY: All CT scans at this facility are submitted to the National Radiology Data Registry (NRDR) Dose Index Registry (DIR) with the [employer] (ACR). RADIATION OPTIMIZATION: All CT scans at this facility use at least one of these dose optimization te chniques: automated exposure control; mA and/or kV adjustment per patient size (includes targeted exa ms where dose is matched to clinical indication); or iterative reconstruction.
== END ==
PROVIDERS: PCP Family Medicine; Visit Provider Obstetrics & Gynecology Gynecology
DX: R93.5 Abnormal findings on diagnostic imaging of other abdominal regions, including retroperitoneum (principal)
CPT/HCPCS: 74177

== ENCOUNTER → 2022-04-20 02:53 | Outpatient (CLI) | payer OTHER, SELFPAY ==
--- NOTE | 2022-04-20 08:00 | DI.MAMMO_ITS ---
Exam(s) MAMMO SCREENING EXAM: MAMMO SCREENING CLINICAL HISTORY: screening TECHNIQUE: Mammograms were interpreted according to the usual protocol including computer analysis w [employer] CAD system, tomosynthesis and C-view imaging. COMPARISON: FINDINGS: The breasts are heterogeneously dense. No dominant mass or clumped microcalcification is identified in either breast. The current examination is compared with previous examination of January 2018 and t here has been no gross interval change in appearance in comparison with the prior study. IMPRESSION: No specific evidence of malignancy at this time. Routine screening examinations are suggested at yea rly intervals in this age group according to the ACS ACR guidelines. BI-RADS Category 1 - Negative Breast Density - Category C - Heterogeneously dense
== END ==
PROVIDERS: PCP Family Medicine; Visit Provider Obstetrics & Gynecology Gynecology
DX: Z12.31 Encounter for screening mammogram for malignant neoplasm of breast (principal); R92.8 Other abnormal and inconclusive findings on diagnostic imaging of breast
CPT/HCPCS: 77063; 77067

== ENCOUNTER → 2022-05-26 17:10 | Outpatient (CLI) | payer OTHER, SELFPAY ==
--- NOTE | 2022-05-26 17:15 | DI.RAD_ITS ---
Exam(s) XR CHEST 2V PA LATERAL EXAM: XR CHEST 2V PA LATERAL CLINICAL HISTORY: evaluate pathology TECHNIQUE: 2D digital imaging was performed. COMPARISON: CR ABD FLAT UPRIGHT PA CHEST from 09/28/2013 FINDINGS: HEART: Normal size. Aorta: PULMONARY VASCULATURE: Normal. LUNGS: Hyperinflated but clear. PLEURAL SPACE: No pleural effusion or pneumothorax. BONE:Mild degenerative disc changes mid thoracic spine. IMPRESSION: No acute abnormality. DATA REPOSITORY: RADIATION DOSE DELIVERED:
--- NOTE | 2022-05-26 18:01 | DI.VRAD_ITS ---
PROCEDURE INFORMATION: Exam: XR Chest Exam date and time: 05/26/2022 5:28 PM Age: 47 years old Clinical indication: Other: Eval pathology, ? bronch/pneumonia TECHNIQUE: Imaging protocol: Radiologic exam of the chest. Views: 2 views. COMPARISON: CT ABDOMEN PELVIS W 04/11/2022 9:19 AM FINDINGS: Lungs: Lungs are clear throughout with no mass or consolidation detected. Pleural spaces: No pneumothorax or pleural effusion detected. Heart/Mediastinum: Heart size is normal and vessel margins are sharply defined. Bones/joints: No acute osseous lesions are detected. IMPRESSION: No acute findings. Dictated and Authenticated by: Mack Thakkar MD. Ordering:SUMIT Kimble MD
== END ==
PROVIDERS: PCP Family Medicine; Visit Provider Nurse Practitioner Family
DX: J40 Bronchitis, not specified as acute or chronic (principal)
CPT/HCPCS: 71046

== ENCOUNTER 2022-06-02 16:02 | Outpatient (REF) | payer OTHER, SELFPAY ==
[2022-06-02 18:55] LABS: Calculated LDL 106 mg/dL (<100); Cholesterol 190 mg/dL (<200); HDL Cholesterol 68 mg/dL (40-60); Triglyceride 81 mg/dL (<150)
== END 2022-06-02 16:03 | disposition home or self-care (01) ==
LOC: NCHCN 16:02
PROVIDERS: PCP Family Medicine; Visit Provider Family Medicine
DX: Z00.00 Encounter for general adult medical examination without abnormal findings (principal)
CPT/HCPCS: 80061

== ENCOUNTER 2023-04-26 06:54 | Day surgery (SDC) | payer OTHER, SELFPAY ==
--- NOTE | 2023-04-25 16:56 | HPE_ITS ---
Assessment and Plan Assessment and plan (1) Screen for colon cancer: Status: Acute Assessment and plan: We discussed the procedure today, as well as the risks and benefits. I think she has a great understanding of this. We will proceed as planned with colonoscopy. History of Present Illness History of Present Illness Chief Complaint: Screening colonoscopy Narrative: 48 y/o female with history of anxiety presents for colonoscopy screening pre- op. She denies a family history of colon cancer. She denies any changes in bowel habits including bloody or black tarry stools, abdominal pain, diarrhea or constipation. She denies constitutional symptoms. She denies chest pain, palpitations, dyspnea or dyspnea with exertion. She describes being physically active walking 1-2 miles/day. She denies prior history or family history of adverse reactions or complications with anesthesia. The patient denies any history of stroke, RI, seizures, bleeding or clotting disorders. She denies having any implanted metal in her body. PFSH All Active Problems Screen for colon cancer (Acute) Sacroiliitis (Acute) Chest wall pain (Acute) Soft tissue mass (Acute) 10cm x 1cm in RLQ. Tender to touch. Palpable on exam. Nl soft tissue u/s. Relies on vasectomy as primary control method (Acute) RLQ abdominal pain (Acute) Gluteal tendinitis of right buttock (Acute) Labral tear of right hip joint (Acute) Femoroacetabular impingement of right hip (Acute) Anxiety (Chronic) Citalopram 20mg since 2013. Iliotibial band syndrome of right side (Acute) Uses oral contraceptives (Acute) progestin OCP Rx for non-contraceptive benefits. Pelvic pain (Acute) RLQ assoc with onset of light uterine bleeding. 06/18/2019 improved with amenorrhea resulting from progesterone only pills Primary dysmenorrhea (Acute) improved after endometrial ablation. pain present with any uterine bleeding. Tobacco use (Acute) Pre-contemplative stage of quitting. Unexplained night sweats (Acute 03/17/14) Trochanteric bursitis, right hip (Chronic 12/17/17) Injection: 07/01/19; 05/07/19 Tendinitis involving right hip abductors (Acute 12/17/17) Ganglion cyst of finger of right hand (Acute 01/14/18) Bruxism (teeth grinding) (Acute 09/15/13) Arthralgia of temporomandibular joint (Acute 09/15/13) Medical History Endometriosis Lactose intolerance Menopausal syndrome (hot flashes) History of TMJ disorder Globus sensation Surgical History Endometrial Ablation 2011 in [place] Diagnostic Laproscopy For Endometriosis in 2010 [place] Family History Mother No problems noted. Father No problems noted. Sister Thyroid disorder Sister Thyroid disorder Social History Smoking/Tobacco Use Status: Current every day Tobacco Type: cigarettes Years smoked: 25 Quit status: not considering quitting Counseling given: provider counseling Smoking risk assessment performed?: Yes Alcohol Intake: current Alcohol Intake frequency: holidays/special occasions only Alcohol type: wine Drug use: Never Substance use type: does not use Household members: spouse and other Details: Angelo Corral @ [facility]. Housing: house Number of Children: 2 number of grandchildren: 1 Sexually active: Yes Current gender identity: female Seatbelt use: always Do you feel safe at home: Yes Do you feel safe in your relationship?: Yes Female Reproductive History Menstrual control method: other (Vasectomy for BC) Meds Allergies and Home Medications Allergies Allergy/AdvReac Type Severity Reaction Status Date / Time acetaminophen [From Percocet] Allergy Mild Vomiting Verified 04/26/23 07:07 oxycodone [Oxycodone] AdvReac Mild n/v Verified 04/26/23 07:07 Home Medications Medication Instructions Recorded Confirmed Type citalopram 10 mg tablet 20 mg PO DAILY 03/17/14 04/26/23 History clonazepam 0.25 mg disintegrating 0.125 mg PO PRN 03/17/14 04/26/23 History tablet norethindrone (contraceptive) 0.35 0.35 mg PO DAILY #84 tabs 03/02/22 04/26/23 Rx mg tablet nicotine 21 mg/24 hr daily 1 patch transdermal Q24H 01/12/23 04/25/23 History transdermal patch mupirocin 2 % topical ointment 1 applic topical TID #15 grams 04/07/23 04/26/23 Rx
--- NOTE | 2023-04-25 16:56 | W.PM.DSUDISC ---
Date of service: 04/26/23 Time of Service: 07:55 Discharge Plan Disposition Patient Disposition: Home Condition: Good Discharge Details Reason For Visit: Screening colonoscopy Attending Provider: Nestor Wright Primary Care Provider: Dia Hagen Home Meds and New Rx's Prescriptions: Continued norethindrone (contraceptive) 0.35 mg tablet 0.35 mg PO DAILY Qty: 84 5RF Rx Instructions: start day 1 of menstrual cycle mupirocin 2 % ointment 1 applic topical TID Qty: 15 0RF citalopram 10 MG tablet 20 mg PO DAILY clonazepam 0.25 MG tablet,disintegrating 0.125 mg PO PRN nicotine 21 mg/24 hr patch 24 hour 1 patch transdermal Q24H Discontinued bisacodyl [Dulcolax (bisacodyl)] 5 mg tablet,delayed release (DR/EC) 5 mg PO ONCE Qty: 4 0RF Rx Instructions: Take per colonoscopy instructions provided by ordering providers office polyethylene glycol 3350 17 gram/dose powder 17 g PO ONCE Qty: 238 0RF Rx Instructions: Take per colonoscopy instructions provided by ordering providers office Discharge Instructions Instructions: Colorectal Polyps (GEN) Additional Instructions: Jeannine, we were able to complete your colonoscopy today without any difficulty. The quality of your prep was excellent. I could see everything just fine. I did find 1 very small polyp. I removed it completely. Once I have the report from the polyp pathology, I will be in touch with my final recommendations for your next colonoscopy. 1. If tolerated, consume a soft, low fiber diet for 1-2 days. 2. Do not drive, drink alcohol, operate machinery, make critical decisions, or do activities that require coordination or balance for 24 hours. 3. Because air was put into your colon during the procedure, expelling air from your rectum (passing gas or farting) is normal. 4. You may not have a bowel movement for 1-3 days because of the colonoscopy prep. This is normal. 5. Go directly to the emergency room if you notice any of the following: Develop chills (warm to touch), or if you have a thermometer and your temperature is above 101 Difficulty breathing or difficultly swallowing Persistent vomiting Severe abdominal pain, other than gas cramps Severe chest pain Black, tarry stools Any bleeding ? exceeding one tablespoon 6. Call your physician if the site where your intravenous was started becomes red, swollen, painful, and warm to touch. 7. Your physician has reviewed your pre-procedure medications. Please continue to take those medications as previously ordered. You will be given specific information/education regarding any changes to your medications before leaving. Activity:: Activity as Tolerated Diet:: As Tolerated Discharge Orders Discharge Orders: Discharge Order (Routine); Ordered 04/25/23 Ordered By: Nestor Wright DS: Diagnosis Discharge Diagnosis (1) Screen for colon cancer: Status: Acute Asessment and Plan: I will follow-up on polyp results
--- NOTE | 2023-04-25 16:58 | W.COLOREPORT ---
Date of service: 04/26/23 Time of Service: 08:42 Colonoscopy Report Date of procedure: 04/26/23 Pre-op diagnosis general: Screening colonoscopy Post-op diagnosis procedure note: other (Colon polyp) Procedure: Colonoscopy with polypectomy Surgeon: Nestor Wright Anesthesia Type: General:No Airway Estimated blood loss (mL): 5 Pathology: other (0.25 cm polyp at 45 cm from the anus) Complications: None Disposition: same day Indications: Jeannine is a 48-year-old woman here for screening colonoscopy Prep: Miralax/Dulcolax Procedure Start Time: 08:17 Procedure End Time: 08:33 Retraction Time: 10 Findings: 0.25 cm colon polyp Procedure Description: After the induction of monitored anesthetic care, and with the patient in left lateral decubitus position, I began by performing an external anorectal exam.? Perineum and skin were normal, as was the anal verge.? There was no evidence of external hemorrhoids.? Next, I performed a digital rectal exam.? I did not appreciate any abnormal findings.? Next, I advanced a colonoscope into the rectal vault.? I performed retroflexion.? This appeared normal.? Using insufflation, I then advanced the colonoscope beyond the rectal folds and into the sigmoid colon before advancing towards the cecum.? The quality of the prep was excellent.? The scope was noted to be in the cecum by identification of the ileocecal valve and appendiceal orifice.? I then began withdrawing the colonoscope using repeated irrigation as necessary for full evaluation of the colonic mucosa. Around 45 cm from the anal verge I identified a 0.25 cm polyp. ?It appeared sessile in character. ?I was able to remove this with a cold forcep polypectomy. ?I examined the site, and there was minimal bleeding. ?Once this was completed, I continued to withdraw the scope and examine the remainder of the colonic mucosa.?Once the scope was withdrawn to the level of the rectum, great care was taken to examine portions of the rectal folds.? Finally, the scope was withdrawn and the patient was brought to the same-day surgery recovery unit as the anesthetic wore off. ?The findings and instructions were shared with the patient prior to discharge. [place] Bowel Prep [place] Bowel Prep Right Colon: 3 Left Colon: 3 Transverse Colon: 3 Total Score: 9
[2023-04-26 07:02] VITALS: BP 115/75; PULSE 90; TEMP 36.8; O2SAT 96
[2023-04-26] MEDS: Lactated Ringers 1,000 ML 80 ML IV (07:35)
[2023-04-26 08:01] VITALS: BMI 21.2
--- NOTE | 2023-04-26 08:01 | ANES.PREOP_ITS ---
General Info Date of Service Date Performed: 04/26/23 Height: 5 ft Weight: 49.4 kg Body Mass Index (BMI): 21.2 Surgical Procedure: Operation Date: 04/26/23 08:20 Proposed Procedure Side Surgeon p Colonoscopy Nestor Wright MD Actual Procedure Side Surgeon p Colonoscopy Not Applicable Nestor Wright MD Meds Allergies and Home Medications Allergies Allergy/AdvReac Type Severity Reaction Status Date / Time acetaminophen [From Percocet] Allergy Mild Vomiting Verified 04/26/23 07:07 oxycodone [Oxycodone] AdvReac Mild n/v Verified 04/26/23 07:07 Home Medication Medication Instructions Recorded citalopram 10 mg tablet 20 mg PO DAILY 03/17/14 clonazepam 0.25 mg disintegrating 0.125 mg PO PRN 03/17/14 tablet norethindrone (contraceptive) 0.35 0.35 mg PO DAILY #84 tabs 03/02/22 mg tablet nicotine 21 mg/24 hr daily 1 patch transdermal Q24H 01/12/23 transdermal patch mupirocin 2 % topical ointment 1 applic topical TID #15 grams 04/07/23 Current Visit Medications: Current Medications Generic Name Dose Route Start Last Admin Trade Name Freq PRN Reason Stop Dose Admin Hyoscyamine Sulfate 0.125 mg 04/25/23 16:58 Hyoscyamine 0.125 Mg Sl/Oral/Chew SL 05/25/23 16:57 DIRECTED PRN Ringer's Solution 1,000 mls @ 80 mls/hr 04/26/23 06:00 04/26/23 07:35 IV 04/26/23 23:59 80 mls/hr INFUSION GEOVANNA Administration IV Miscellaneous Supplies 1 each 04/26/23 06:00 Iv Access IV 04/26/23 23:59 DIRECTED GEOVANNA Ondansetron HCl 4 mg 04/25/23 16:58 Ondansetron 4 Mg/2 Ml Vial IVP 05/25/23 16:57 Q4H PRN PRN Nausea / Vomiting Sodium Chloride 0 ml 04/26/23 06:00 Normal Saline Flush 10 Ml Syr IV 04/26/23 23:59 PRN PRN Sodium Chloride 0 ml 04/26/23 06:00 Normal Saline 10 Ml Vial IJ 04/26/23 23:59 DIRECTED PRN Sterile Water 0 ml 04/26/23 06:00 Water,Injection,Sterile 10 Ml Vial IJ 04/26/23 23:59 DIRECTED PRN PFSH Active Problems Active Problems: Problem Status Onset Code Screen for colon cancer Z12.11 Sacroiliitis M46.1 Chest wall pain R07.89 Soft tissue mass M79.89 Relies on vasectomy as primary control method Z78.9 RLQ abdominal pain R10.31 Gluteal tendinitis of right buttock M76.01 Labral tear of right hip joint S73.191A Femoroacetabular impingement of right hip M25.851 Anxiety F41.9 Iliotibial band syndrome of right side M76.31 Uses oral contraceptives Z30.41 Pelvic pain R10.2 Primary dysmenorrhea N94.4 Tobacco use Z72.0 Unexplained night sweats 03/17/14 R61 Trochanteric bursitis, right hip 12/17/17 M70.61 Tendinitis involving right hip abductors 12/17/17 M76.891 Ganglion cyst of finger of right hand 01/14/18 M67.441 Bruxism (teeth grinding) 09/15/13 F45.8 Arthralgia of temporomandibular joint 09/15/13 M26.629 Medical History Medical History Endometriosis Lactose intolerance Menopausal syndrome (hot flashes) History of TMJ disorder Globus sensation Surgical History Surgical History Endometrial Ablation 2011 in [place] Diagnostic Laproscopy For Endometriosis in 2010 [place] Tobacco Smoking/Tobacco Use Status: Current every day Tobacco Type: cigarettes Years smoked: 25 Counseling given: provider counseling Alcohol Alcohol Intake: current Alcohol intake frequency: holidays/special occasions only Alcohol type: wine Substance Use Substance use: Never Substance use type: does not use Vital Signs and Lab Results Vital Signs Most Recent Vital Signs in EMR: Most Recent Vital Signs Temp Pulse BP Pulse Ox 36.8 C 90 115/75 96 04/26/23 07:02 04/26/23 07:02 04/26/23 07:02 04/26/23 07:02 Point of Care Results Point of Care Results: POC- Test(urine) Negative 04/26/23 07:46 Lab Results Blood Type / Crossmatch: No Data to Display Complete Blood Count: No Data to Display Complete Metabolic Panel: No Data to Display Liver Function Panel: No Data to Display Coagulation Panel: No Data to Display Cardiac Panel: No Data to Display Arterial Blood Gas: No Data to Display Venous Blood Gas: No Data to Display Pancreas Panel: No Data to Display Thyroid Panel: No Data to Display Infectious Disease: No Data to Display Blood Cultures: No Data to Display Toxicology Panel: No Data to Display Panel: No Data to Display Anesthesia Assessment and Plan Anesthesia History Personal History: No History of Anesthesia Complications Family History: No Family History of Anesthesia Complications Exercise Tolerance Exercise Tolerance: Metabolic Equivalents>4 Pertinent Negatives Pertinent Negatives: No Symptoms of GERD Cardiac & Pulmonary Exam Cardiac Exam: Normal S1/S2 Heart Sounds Pulmonary Exam: Clear Bilateral Breath Sounds Implantable Cardiac Device Does patient have a Pacemaker or an ICD?: No Airway Exam Known Difficult Airway: No Mallampati Class: 2 Mouth Opening: Normal (> 3cm) Thyromental Distance: Greater than 3 cm Neck Range of Motion: Full ROM Neck Circumference: Normal Teeth Condition: Normal Dentition ASA Classification ASA Score: ASA 2 Emergency Case?: No NPO Status NPO Status: NPO Clears >2 hours, Solids >8 hours Status Status: Not Relevant due to Medical History Anesthesia Plan Resuscitation Status: Full Code Anesthesia Technique: General Anesthesia Airway Planned: Natural Airway Monitors Used: Standard Monitors
--- NOTE | 2023-04-26 08:21 | BOWEL_PTH ---
PATIENT: Jeannine Perdomo LOC: [facility] U#:[id number] AGE/SX: 48/F ROOM: RE04/26/[address]: Nestor Wright MD : 1975 BED: DIS: 04/26/2023 SPEC #: [id number] RECD: 04/26/23 12:39 STATUS: BRIELLE REQ #: [id number] VILMA: 04/26/23 08:[address]: Nsetor Wright DEPT: Surgical Specimen RECD BY: Luh Ambrocio ENTERED: 04/26/23 12:40 SP TYPE: Bowel OTHR DR: Dia Hagen Tissues: 1 - BIOPSY BOWEL Procedures: GROSS AND MICRO LEVEL 4 Comments: [id number]
[2023-04-26 08:40] VITALS: BP 108/76; PULSE 78; RESP 15; TEMP 36.3; O2SAT 97
--- NOTE | 2023-04-26 08:45 | W.ANESPOSTOP ---
Postoperative Evaluation Date, Time and Location Date Performed: 04/26/23 Time Performed: 08:45 Patient Location: Day Surgery Unit Vital Signs Most Recent Imported Vital Signs: Most Recent Vital Signs Temp Pulse BP Pulse Ox 36.8 C 90 115/75 96 04/26/23 07:02 04/26/23 07:02 04/26/23 07:02 04/26/23 07:02 Pain Score Most Recent Pain Score: Most Recent Pain Score Pain Level 0 04/26/23 07:02 Assessment Mental Status: Awake (Alert & Oriented to Patient Baseline) Airway and Respiratory Function: Patent airway with normal (patient baseline) respiratory exam Cardiovascular Function: Hemodynamically Stable Hydration Status: Adequately Hydrated Nausea & Vomiting: No Nausea or Vomiting Pain: Pt. Denies Any Pain Peripheral Nerve Block: Patient did not receive a nerve block
[2023-04-26 09:09] VITALS: BP 122/79; PULSE 74; RESP 16; TEMP 36.7; O2SAT 100
== END 2023-04-26 09:33 | disposition home or self-care (01) ==
PROVIDERS: PCP Family Medicine; Visit Provider Surgery
PROC: 0DJD8ZZ Inspection of Lower Intestinal Tract, Via Natural or Artificial Opening Endoscopic (ICD-10-PCS; CPT 45378; principal; 2023-04-26 08:15)
DX: Z12.11 Encounter for screening for malignant neoplasm of colon (principal); Z72.0 Tobacco use; D12.5 Benign neoplasm of sigmoid colon
CPT/HCPCS: 45380; 81025; 88305; J2001

== ENCOUNTER → 2023-08-08 01:12 | Outpatient (CLI) | payer OTHER, SELFPAY ==
--- NOTE | 2023-08-08 09:22 | DI.MAMMO_ITS ---
Exam(s) MAMMO SCREENING EXAM: MAMMO SCREENING CLINICAL HISTORY: SCREENING, Z12.31. TECHNIQUE: Bilateral full field digital CC and MLO mammographic images were obtained with 3D tomosyn thesis and utilizing computer aided detection (CAD). COMPARISON: Prior mammograms were reviewed. FINDINGS: There has been no significant change in the appearance and distribution of the fibroglandular tissue which is again noted be moderately dense, this somewhat decreasing the sensitivity of the mammogram f or finding hidden underlying lesions. No CAD designations. There are no new spiculated masses nor malignant appearing microcalcification groups. There is no significant architectural distortion nor skin thickening-retraction. IMPRESSION: No radiographic evidence of malignancy. BI-RADS Category 1 - Negative Breast Density - Category C - Heterogeneously dense Breast density Category C or D implies that the patient has dense breast tissue. Dense breast tissue can make it harder to find cancer on a mammogram. Dense breast tissue is also associated with an incr eased risk of breast cancer. This information about the result of the mammogram report was provided to the patient to raise their awareness. Use this report when you speak with the patient about their risks for breast cancer, which includes their family history. At that time, you may recommend additional screening tests (Ultrasoun d or MRI) as these tests may add significant information. A negative radiographic report should not delay biopsy if a dominant or clinically suspicious mass is present. Up to ten percent of cancers are not identified on mammography. A negative report may reinforce clinical impression. Adenosis and dense breasts may obscure an underlying neoplasm. False positive reports average 6 to 10%. Patient will receive a letter notifying them of these results.
== END ==
PROVIDERS: PCP Family Medicine; Visit Provider Family Medicine
DX: Z12.31 Encounter for screening mammogram for malignant neoplasm of breast (principal)
CPT/HCPCS: 77063; 77067

== ENCOUNTER 2024-08-13 02:15 | Outpatient (CLI) | payer OTHER, SELFPAY ==
--- NOTE | 2024-08-13 | DI.MAMMO_ITS ---
Exam(s) MAMMO SCREENING EXAM: MAMMO SCREENING CLINICAL HISTORY: Z12.39 Screening. TECHNIQUE: Bilateral full field digital CC and MLO mammographic images were obtained with 3D tomosyn thesis and utilizing computer aided detection (CAD). COMPARISON: Prior mammograms were reviewed. FINDINGS: The fibroglandular tissue pattern is again noted be moderately dense, this somewhat decreasing the se nsitivity of the mammogram for finding hidden lesions. There are no CAD designations. No new significant right breast findings. In the left breast there is a new microcalcification posteriorly which has benign appearance. There is no associated mass There is no significant architectural distortion nor skin thickening-retraction. IMPRESSION: Benign findings. No radiographic evidence of malignancy. BI-RADS Category 2 - Benign Findings Breast Density - Category C - Heterogeneously dense Breast density Category C or D implies that the patient has dense breast tissue. Dense breast tissue can make it harder to find cancer on a mammogram. Dense breast tissue is also associated with an incr eased risk of breast cancer. This information about the result of the mammogram report was provided to the patient to raise their awareness. Use this report when you speak with the patient about their risks for breast cancer, which includes their family history. At that time, you may recommend additional screening tests (Ultrasoun d or MRI) as these tests may add significant information. A negative radiographic report should not delay biopsy if a dominant or clinically suspicious mass is present. Up to ten percent of cancers are not identified on mammography. A negative report may reinforce clinical impression. Adenosis and dense breasts may obscure an underlying neoplasm. False positive reports average 6 to 10%. Patient will receive a letter notifying them of these results.
== END 2024-08-13 02:35 ==
LOC: DI 02:15
PROVIDERS: PCP Family Medicine; Visit Provider Family Medicine
DX: Z12.31 Encounter for screening mammogram for malignant neoplasm of breast (principal); R92.333 Mammographic heterogeneous density, bilateral breasts; D24.2 Benign neoplasm of left breast
CPT/HCPCS: 77063; 77067

== ENCOUNTER 2025-03-09 07:29 | Outpatient (CLI) | payer OTHER, SELFPAY ==
[2025-03-09 12:16] LABS: HCT 40.3 % (36.0-46.0); HGB 13.5 g/dL (11.2-15.7); MCH 30.2 pg (27.0-33.0); MCHC 33.5 % (32.0-36.0); MCV 90 fL (80-95); MPV 9.8 fL (8.0-11.0); Platelet Count 253 10^3/uL (130-400); RBC 4.47 10^6/uL (3.93-5.22); RDW 13.7 % (11.7-14.6); RDW-SD 46.1 fL; WBC 8.78 10^3/uL (4.4-10.8)
[2025-03-09 14:01] LABS: ALT 20 U/L (14-59); AST 15 U/L (15-37); Albumin 3.8 g/dL (3.4-5.0); Alkaline Phosphatase 93 U/L (46-116); Anion Gap 9.2 mmol/L (3-11); BUN 7 mg/dL (7-18); Bilirubin, Total 0.4 mg/dL (0.2-1.0); CO2 29.8 mmol/L (21.0-32.0); Calcium 9.1 mg/dL (8.5-10.1); Chloride 104 mmol/L (98-107); Estimated GFR 90.27 (mL/min/1.73m2); Folate 14.2 ng/mL (8.6-20.0); Glucose 132 mg/dL (74-106); Potassium 3.9 mmol/L (3.5-5.1); Sodium 143 mmol/L (136-145); TSH (W/Ref FT4) 0.95 uIU/mL (0.36-3.74); Total Protein 6.7 g/dL (6.4-8.2); Vitamin B12 300 pg/mL (193-986)
== END 2025-03-09 07:30 | disposition home or self-care (01) ==
LOC: LBO 03-10 07:29
PROVIDERS: PCP Family Medicine; Visit Provider Family Medicine
DX: R20.2 Paresthesia of skin (principal); F41.9 Anxiety disorder, unspecified
CPT/HCPCS: 36415; 80053; 85027; 82607; 82746; 84443